=== PATIENT | male | born 1970 | race Caucasian/White ===

== ENCOUNTER 2017-04-18 09:53 | Day surgery (SDC) | payer OTHER ==
[~2017-04-18] VITALS: Ht 171.4 cm; Wt 82.9 kg
[2017-04-18 10:45] VITALS: Ht 171.4 cm; Wt 82.9 kg
[2017-04-18 10:55] VITALS: BP 137/83; PULSE 84; RESP 24
[2017-04-18] MEDS ORDERED: VALS160T20 PO (11:36)
[2017-04-18] MEDS ORDERED: METF500T4 PO (11:36)
--- NOTE | 2017-04-18 12:01 | GILP ---
DATE OF PROCEDURE: PROCEDURE PERFORMED: Esophagogastroduodenoscopy with biopsy and colonoscopy. INDICATION: A 46-year-old male undergoing this procedure for constipation and also a strong family history of colon cancer. He is undergoing EGD for abdominal pain which is persistent despite taking an H2 bebo. The risk of the procedure, related and unrelated complications, sedative risks, alt ernatives discussed and informed consent was obtained. DESCRIPTION OF PROCEDURE: The patient was brought to the GI lab, sedated with Versed 7 mg and fenta nyl 125 mcg. After obtaining sedation, scope was passed with much ease into esophagus which was kathy ssly within normal limits. Z line was at 39 cm. Scope was advanced further down into the stomach, gastritis identified, moved from the antrum, multiple biopsies obtained. Duodenum, first and second part appeared normal. Ampulla also was normal. Retroversion done in the stomach. No gross lesion identified except for the gastritis. Scope was straightened out and removed with good patient tole cathy. IMPRESSION 1. Gastritis. 2. Normal esophagus. 3. Z line at 39 cm. 4. Normal duodenum and ampulla. PLAN: To review histopathology. COLONOSCOPY REPORT: It was turned around, scope was passed with much ease into rectum, advanced thro ugh sigmoid, descending, transverse colon all the way into the cecum. Appendiceal orifice identifie d. IC valve identified. Peeped into terminal ileum. The rest of the colon was normal. While coming out, mucosa thoroughly inspected. Retroversion done. Small ____ tag identified. IMPRESSION: 1. Normal findings all the way into the cecum. 2. Small solitary diverticula in the left side of the colon. 3. Skin tag. 4. Clarity and cleanliness was good. PLAN: To do colonoscopy after 5 years. Dictated By: POOJA ROSS/ORTIZ Conf#: [id number] DID#: [id number]
[2017-04-18 12:15] VITALS: BP 116/83; PULSE 70; RESP 12
[2017-04-18] MEDS ORDERED: FENTAnyl 50 MCG/ML VIAL ONE ×2 (13:16)
[2017-04-18] MEDS ORDERED: MIDAZOLAM 1 MG/ML 2 ML INJ ONE ×4 (13:16)
== END 2017-04-18 14:49 | disposition home or self-care (01) ==
LOC: GIL 09:53
PROVIDERS: ATTEND Internal Medicine Gastroenterology
DX: Z12.11 Encounter for screening for malignant neoplasm of colon (principal); K29.70 Gastritis, unspecified, without bleeding; K57.90 Diverticulosis of intestine, part unspecified, without perforation or abscess without bleeding; L91.8 Other hypertrophic disorders of the skin; E11.9 Type 2 diabetes mellitus without complications; I10 Essential (primary) hypertension
CPT/HCPCS: 43239; 45378; 82962; 88305; 88312; J2250; J3010; Z7610